=== PATIENT | male | born 1935 | race Caucasian/White ===

== ENCOUNTER → 2017-06-14 | Outpatient (CLI) | payer OTHER ==
[~2017-06-14] MED LIST: ASPI325T39 PO; CIPR-255 PO; CLR10 PO; DICL1GEL12 TOP; DOCU-94 PO; FERR325T51 PO; FINA5TAB PO; FLUT0.0529 NAE; GLUCTAB7 PO; HYT/10 PO; LATA0.009 OPB; LISI-725 PO; LPR25 PO; LPT10 PO; METR0.7527 TOP; OMEGCAP2 PO; OPTIRAY 320 IV PRN; PRLSR20 PO; TRAM200T16 PO; UBIQ1CAP8 PO; [UNRECOGNIZED DRUG - CODE] PO
--- NOTE | 2017-06-14 10:12 | DIAGNOSTIC IMAGING REPORT ---
(CHEST) THORAX WITH CLINICAL HISTORY: 81 years-old Male presenting with NON HODGKIN'S LYMPHOMA. TECHNIQUE: Multidetector CT imaging of the chest was performed after the administration of intravenous contrast. IV contrast: 110 mL of Optiray 320. A dose lowering technique was used consistent with the principles of ALARA (as low as reasonably achievable). COMPARISON: 04/18/2016. CT DOSE (mGy.cm): The estimated cumulative dose is 733.[address] of the abdomen and pelvis. 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 On soft tissue windows, normal thyroid and thoracic inlet. Few prominent lymph nodes in the axilla, which maintain benign morphology with normal fatty mayito. These are unchanged from prior exam. Few prominent lymph nodes in the mediastinum are also unchanged from prior exam measuring up to 7 mm in the short axis. Few small right hilar lymph nodes, unchanged. Atherosclerosis of the aorta. 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 Coronary artery calcification. 2-lead pacer in place in the right atrium and right ventricular apex. Mild multichamber enlargement of the heart. No pericardial or pleural effusion. Upper abdomen normal. On lung windows, solid 2 mm pulmonary nodule in the right middle lobe (series 6 image 180), unchanged. Old calcified granuloma noted in the right upper lobe. Bandlike opacities in the lingula likely atelectasis or scarring. Persistent solid nodular opacity in the lingula measuring up to 19 mm (series 6 image 154), previously 19 mm. This is unchanged in configuration from prior. Paramediastinal and dependent reticulation, possibly scarring or post radiation change. Airways patent. On bone windows, degenerative changes of the spine. IMPRESSION: 1. No pathologically enlarged lymph nodes. Mildly prominent mediastinal and right hilar lymph nodes unchanged from prior, possibly reactive. 2. 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 3. Stable appearance of pulmonary scarring or post radiation change. 4. Mild cardiac megaly. Electronically signed by: Marv Vences M.D. 06/14/2017 10:10 AM Dictated Date/Time: 06/14/2017 10:02 AM
--- NOTE | 2017-06-14 10:23 | DIAGNOSTIC IMAGING REPORT ---
CT OF THE ABDOMEN AND PELVIS WITH CONTRAST CLINICAL HISTORY: Non-Hodgkin's lymphoma. COMPARISON STUDY: CT of the abdomen and pelvis April 18, 2016. TECHNIQUE: Following IV administration of 110 mL of Optiray-320, axial images of the abdomen and pelvis were obtained from the lung bases to the proximal femurs. Images were reviewed in the axial, sagittal, and coronal planes. IV contrast was administered without complication. A dose lowering technique was utilized adhering to the principles of ALARA. Oral contrast was administered. CT DOSE: 733.18 mGy.cm FINDINGS: The chest will be reported separately. The liver, spleen, adrenal glands and pancreas are unremarkable. There are several subcentimeter renal lesions which are too small to characterize but likely reflect cysts. There is no hydronephrosis. There is no biliary or pancreatic ductal dilatation. Atrophy of the right psoas muscle is unchanged. Caliber and wall thickness of small and large bowel are normal. Images of the pelvis are degraded by streak artifact from bilateral hip arthroplasties. No pathologically enlarged abdominal or pelvic lymph nodes are identified. A few prominent para-aortic and left common iliac lymph nodes are unchanged. These measure up to 9 mm in short axis diameter. IMPRESSION: No abdominal or pelvic lymphadenopathy. Electronically signed by: Francesco Dacosta M.D. 06/14/2017 10:22 AM Dictated Date/Time: 06/14/2017 10:13 AM
[2017-06-14 15:18] LABS: ISTAT CREATININE 0.9 mg/dl (0.6-1.3); ISTAT HEMOGLOBIN 14.6 g/dl (14.0-18.0); ISTAT IONIZED CALCIUM 1.24 mmol/l (1.12-1.32)
== END | disposition home or self-care (01) ==
LOC: C.CTS 08:52
PROVIDERS: ATTEND Internal Medicine Hematology & Oncology
DX: C85.92 Non-Hodgkin lymphoma, unspecified, intrathoracic lymph nodes (principal); C85.93 Non-Hodgkin lymphoma, unspecified, intra-abdominal lymph nodes

== ENCOUNTER → 2017-07-02 | Outpatient (CLI) | payer OTHER ==
[~2017-07-02] MED LIST changes: -OPTIRAY 320 IV PRN
[2017-07-02 13:35] LABS: BASO % 0.4 %; BASO ABS # 0.02 K/uL (0-0.2); COMPLETE YES; EOS % 2.7 %; IG% 0.2 %; LYMPH % 29.6 %; LYMPH ABS # 1.41 K/uL (1.2-3.4); MEAN CELL VOLUME 95.2 fL (80-100); MEAN CORPUSCULAR HEMOGLOBIN 31.1 pg (25-34); MEAN CORPUSCULAR HGB CONC 32.6 g/dl (32-36); MEAN PLATELET VOLUME 10.6 fL (7.4-10.4); MONO % 10.7 %; NEUT % 56.4 %; PLATELET COUNT 213 K/uL (130-400); RED BLOOD COUNT 4.41 M/uL (4.7-6.1); WHITE BLOOD COUNT 4.77 K/uL (4.8-10.8)
[2017-07-02 14:11] LABS: ALKALINE PHOSPHATASE 52 U/L (45-117); ALT/SGPT 21 U/L (12-78); BLOOD UREA NITROGEN 17 mg/dl (7-18); BUN/CREATININE RATIO 18.1 (10-20); CALCIUM 9.7 mg/dl (8.5-10.1); CARBON DIOXIDE 26 mmol/L (21-32); CHLORIDE 99 mmol/L (98-107); CHOLESTEROL 159 mg/dl (0-200); CREATININE 0.91 mg/dl (0.60-1.40); GLUCOSE 106 mg/dl (70-99); POTASSIUM 4.5 mmol/L (3.5-5.1); SODIUM 133 mmol/L (136-145); TRIGLYCERIDES 78 mg/dl (0-150); VERY LOW DENSITY LIPOPROT CALC 16 mg/dl
[2017-07-02 14:16] LABS: AST/SGOT 26 U/L (15-37); CHOLESTEROL/HDL RATIO 2.8; HDL CHOLESTEROL 57 mg/dl; LDL CHOLESTEROL CALCULATED 86 mg/dl
== END | disposition home or self-care (01) ==
LOC: C.LABBC 09:20
PROVIDERS: ATTEND Internal Medicine Hematology & Oncology
DX: C85.90 Non-Hodgkin lymphoma, unspecified, unspecified site (principal); I25.10 Atherosclerotic heart disease of native coronary artery without angina pectoris; D63.8 Anemia in other chronic diseases classified elsewhere

== ENCOUNTER → 2018-05-20 | Outpatient (CLI) | payer OTHER ==
[~2018-05-20] MED LIST changes: -HYT/10 PO; +TERA10CA24 PO
== END | disposition home or self-care (01) ==
LOC: C.LABBC 08:40
PROVIDERS: ATTEND Internal Medicine Cardiovascular Disease
DX: I10 Essential (primary) hypertension (principal); E78.5 Hyperlipidemia, unspecified